=== PATIENT | female | born 1950 | race Caucasian/White ===

== ENCOUNTER 2017-02-04 08:10 | Outpatient (CLI) | payer OTHER ==
[~2017-02-04] VITALS: Ht 157.5 cm; Wt 72.6 kg
[2017-02-04] VITALS (10 sets, daily range): BP systolic 137–168; BP diastolic 66–88
[~2017-02-04 08:10] MED LIST: ASPI-482 PO; ATEN50TA PO; CHOL10003 PO; GLIP10TA13 PO; LEVO150T5 PO; LOSA50TA6 PO; LOVA20TA2 PO; METF-620 PO; MULT-460 PO; OMEP20TA63 PO
[2017-02-04 08:35] LABS: HEMATOCRIT 37.4 % (36.0-47.0); RED BLOOD COUNT 4.12 x10^6/uL (3.50-5.40); RED CELL DISTRIBUTION WIDTH 13.2 % (11.5-14.5); WHITE BLOOD COUNT 8.7 x10^3/uL (4.0-11.0)
[2017-02-04 08:43] LABS: CALCIUM 9.1 mg/dL (8.5-10.1); CREATININE 0.9 mg/dL (0.6-1.0); GFR 62.6; POTASSIUM 4.3 mmol/L (3.5-5.1)
[2017-02-04 08:47] LABS: PROTHROMBIN TIME PATIENT 12.1 SEC (11.7-14.0)
[2017-02-04] MEDS ORDERED: LIDOCAINE 2% 20 ML VIAL. ONE (10:02)
[2017-02-04] MEDS ORDERED: IOHEXOL 300 MG/ML 100ML VIAL. ONE (10:02)
--- NOTE | 2017-02-04 10:06 | PDOC ---
MODERATE SEDATION ASSESSMENT RISKS/ALTERNATIVES Risks/Alternatives Risks and alternatives of this type of sedation and procedure discussed with: RISK/ALTERNATIVES: Patient H & P ON CHART H & P H & P on chart and reviewed for co-morbid conditions and appropriate labs. H&P ON CHART: Yes STATUS PREG STATUS ASSESSED: Yes MEDS/ALLERGIES REVIEWED Meds/Allergies Reviewed Medications and Allergies including time and route of recently administered narcotics and sedatives. MEDS/ALLERGIES REVIEWED: Yes ASA RATING ASA RATING: II AIRWAY ASSESSMENT Airway Assessment Airway patency, oral function limitations, presence of caps, crowns, dentures, partials, and ability to extend neck assessed. AIRWAY ASSESSMENT: Yes MALLAMPATI SCORE MALLAMPATI SCORE: II PRE-SEDATION ASSESSMENT PRE-SEDATION ASSESSMENT: Yes GINA ELLIOTT MD Feb 04, 2017 10:06
[2017-02-04] MEDS ORDERED: fentaNYL PF VIAL 100 MCG/2 ML VIAL ONE (10:15)
[2017-02-04] MEDS ORDERED: MIDAZOLAM HCL/PF 5 MG/5 ML VIAL. ONE (10:15)
[2017-02-04] MEDS ORDERED: NITROGLYCERIN OINT 1 GM PACKET. ONE (10:30)
[2017-02-04] MEDS ORDERED: MIDAZOLAM HCL/PF 5 MG/5 ML VIAL. IV ONE (10:45)
[2017-02-04] MEDS ORDERED: IOHEXOL 300 MG/ML 100ML VIAL. IART ONE (10:45)
[2017-02-04] MEDS ORDERED: LIDOCAINE 2% 20 ML VIAL. IJ ONE (10:45)
[2017-02-04] MEDS ORDERED: fentaNYL PF VIAL 100 MCG/2 ML VIAL IV ONE (10:45)
[2017-02-04] MEDS ORDERED: NITROGLYCERIN OINT 1 GM PACKET. TP ONE (11:00)
[2017-02-04] MEDS ORDERED: NITROGLYCERIN SUBLINGUAL 0.4 MG BOTTLE OF 25. SL PRN (11:15)
[2017-02-04] MEDS ORDERED: 0.9 % SODIUM CHLORIDE 10 ML DISP.SYRIN. IV PRN (11:15)
[2017-02-04] MEDS ORDERED: IV NORMAL SALINE 1000ML BAG 1,000 ML IV SCH (11:30)
[2017-02-04] MEDS ORDERED: IBUPROFEN 800 MG TABLET. PO ONE (11:30)
--- NOTE | 2017-02-09 11:11 | CARD ---
APPROVED REPORT Procedures Left heart catheterization. Left ventriculogram. Selective coronary angiogram. The patient is a 66-year-old female with episodes of recurrent chest pain and shortness of breath. Th e patient has associated risk factors of hypertension. hyperlipidemia and diabetes mellitus. In this setting cardiac catheterization was recommended. Risks and benefits were discussed. The patient agree d to the procedure. After informed consent was obtained the patient was brought to the heart catheterization lab. The rig ht femoral artery was prepared in the usual manner with Betadine, sterile draping and local anestheti c. An 18-gauge needle was used to enter the right femoral artery, a wire placed and a 6 Estonian sheath placed over the wire. A 6 Estonian JL4 diagnostic catheter was used to engage the left coronary system and sequential injections in various views were obtained. A 6 [place] Vincenzo diagnostic catheter wa s used for injections of the right coronary artery although due to an anomalous takeoff it was not ab le to be engaged. However appropriate imaging was obtained. A pigtail catheter was advanced to the as cending aorta and the left ventricle. A 30 left ventriculogram was performed. Pullback pressures were measured. The catheter was removed from the patient. Injection of the sheath showed normal plac ement. The sheath was removed and sealed with an Angio-Seal product. There were no immediate complica tions. Findings. Hemodynamics. Left ventricular pressure of 136/18, aortic root 142/62. Coronaries. Left main. The left main was a normal-size vessel. It had no lesions. Left anterior descending. The left anterior descending was a moderate size vessel. It had no lesions. Left circumflex. The left circumflex was dominant vessel. It had no lesions. Right coronary artery. 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 It had no lesions. Left ventriculogram. The left ventricle had normal systolic function and no mitral regurgitation. <Conclusion> No angiographic evidence of coronary artery disease. 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 Normal left ventricular systolic function.
== END 2017-02-04 14:20 | disposition home or self-care (01) ==
LOC: CCL 08:10
PROVIDERS: ATTEND Internal Medicine Cardiovascular Disease
DX: R07.89 Other chest pain (principal); I10 Essential (primary) hypertension; E78.5 Hyperlipidemia, unspecified; E11.9 Type 2 diabetes mellitus without complications
CPT/HCPCS: 36415; 80048; 85027; 85610; 93458; 99152; 99153; C1769; C1771; C1892; G0269; J1644; J2250; J3010; Q9967; J2001

== ENCOUNTER 2017-06-24 18:55 | Emergency (ER) | payer OTHER ==
[2017-06-24 19:41] LABS: BILIRUBIN,URINE NEGATIVE (NEG); CLARITY,URINE CLEAR; COLOR,URINE YELLOW; GLUCOSE,URINE NEGATIVE (NEG); NITRITE,URINE NEGATIVE (NEG); PROTEIN,URINE NEGATIVE (NEG-TRACE); UROBILINOGEN,URINE 0.2 mg/dL (0.2 mg/dL)
[2017-06-24] MEDS: IV NORMAL SALINE 1000ML BAG 1,000 ML IV (19:43)
[2017-06-24 19:44] LABS: FECAL OB PT NEGATIVE (NEG); NEG OBC FOB NEG; POS OBC FOB POS
[2017-06-24] MEDS: fentaNYL PF VIAL 100 MCG/2 ML VIAL IV (19:44)
[2017-06-24] MEDS: ONDANSETRON PF 4 MG/2 ML VIAL. IV (19:44)
[2017-06-24 19:48] LABS: BACTERIA,URINE 0 /HPF (0-FEW); RBC,URINE 0 /HPF (0-2); SQUAMOUS EPITHELIAL CELL,UR MANY /LPF
[2017-06-24 19:52] LABS: ADD MAN DIFF? NO
[2017-06-24 19:55] LABS: BASO # 0.1 x10^3/uL (0.0-0.2); BASO % 1 % (0-3); EOS # 0.1 x10^3/uL (0.0-0.7); EOS % 1 % (0-3); HEMATOCRIT 36.3 % (36.0-47.0); HEMOGLOBIN 12.3 g/dL (12.0-15.5); LYMPH # 2.7 x10^3/uL (1.0-4.8); LYMPH % 32 % (24-48); MEAN CORPUSCULAR HEMOGLOBIN 32 pg (25-35); MEAN CORPUSCULAR HGB CONC 34 g/dL (31-37); MEAN CORPUSCULAR VOLUME 93 fL (79-100); MONO # 0.7 x10^3/uL (0.0-1.1); MONO % 8 % (0-9); NEUT # 4.8 x10^3uL (1.8-7.7); NEUT % 58 % (31-73); PLATELET COUNT 325 x10^3/uL (140-400); RED CELL DISTRIBUTION WIDTH 13.6 % (11.5-14.5); WHITE BLOOD COUNT 8.2 x10^3/uL (4.0-11.0)
[2017-06-24 20:03] LABS: ANION GAP 15 (6-14); BLOOD UREA NITROGEN 18 mg/dL (7-20); BUN/CREATININE RATIO 23 (6-20); CALCIUM 9.3 mg/dL (8.5-10.1); CARBON DIOXIDE 23 mmol/L (21-32); CHLORIDE 100 mmol/L (98-107); CREATININE 0.8 mg/dL (0.6-1.0); GFR 71.8; GLUCOSE 124 mg/dL (70-99); POTASSIUM 4.4 mmol/L (3.5-5.1); SODIUM 138 mmol/L (136-145)
[2017-06-24 20:08] LABS: ALBUMIN 4.2 g/dL (3.4-5.0); ALBUMIN/GLOBULIN RATIO 1.3 (1.0-1.7); ALK PHOS 69 U/L (46-116); ALT (SGPT) 27 U/L (14-59); AST (SGOT) 18 U/L (15-37); LIPASE 219 U/L (73-393); MAGNESIUM 1.2 mg/dL (1.8-2.4); TOTAL BILIRUBIN 0.4 mg/dL (0.2-1.0); TOTAL PROTEIN 7.4 g/dL (6.4-8.2)
[2017-06-24 20:11] LABS: TROPONINI < 0.017 ng/mL (0.000-0.055)
[2017-06-24 20:12] LABS: PARTIAL THROMBOPLASTIN TIME 26 SEC (24-38)
[2017-06-24 20:13] LABS: INR 0.9 (0.8-1.1); PROTHROMBIN TIME PATIENT 11.9 SEC (11.7-14.0)
== END 2017-06-24 21:20 | disposition home or self-care (01) ==
LOC: ER 18:55
DX: N39.0 Urinary tract infection, site not specified (principal); R11.2 Nausea with vomiting, unspecified; R19.7 Diarrhea, unspecified; M19.90 Unspecified osteoarthritis, unspecified site; E11.9 Type 2 diabetes mellitus without complications; E03.9 Hypothyroidism, unspecified; Z90.710 Acquired absence of both cervix and uterus; Z88.6 Allergy status to analgesic agent; Z88.8 Allergy status to other drugs, medicaments and biological substances
CPT/HCPCS: 36415; 80053; 81001; 82274; 83690; 83735; 84484; 85025; 85610; 85730; 87086; 93005; 96361; 96374; 96375; 99285-25; J2405; J3010; J7030

== ENCOUNTER → 2017-07-14 | Outpatient (CLI) | payer OTHER | END | disposition home or self-care (01) | LOC: KCIC US 09:52 | DX: K76.0 Fatty (change of) liver, not elsewhere classified (principal); K83.8 Other specified diseases of biliary tract; I70.0 Atherosclerosis of aorta; R16.0 Hepatomegaly, not elsewhere classified | CPT/HCPCS: 76705 ==

== ENCOUNTER → 2018-07-12 | Outpatient (CLI) | payer MEDICARE, OTHER ==
[2017-06-24 20:49] VITALS: BP 129/60
[~2018-07-12] MED LIST changes: +CEPH-264 PO; +ESCITALOPRAM OX10 MG PO; +LOSA-73 PO; +LOSA25TA54 PO; -LOSA50TA6 PO; -METF-620 PO; +METF10007 PO; +METO-269 PO; +ONDA4TAB10 SL; +PENI500T PO
--- NOTE | 2018-07-12 12:05 | RAD ---
PQRS Compliance Statement: One or more of the following individualized dose reduction techniques were utilized for this examination: 1. Automated exposure control 2. Adjustment of the mA and/or kV according to patient size 3. Use of iterative reconstruction technique CT chest without contrast July 12, 2018 INDICATION: Persistent cough, fatigue. COMPARISON: CT chest June 02, 2017 TECHNIQUE: Multiple axial CT images of the chest were obtained without intravenous contrast. Coronal and sagittal reformats are provided. FINDINGS: Thyroid gland is normal in appearance. Prevascular lymph node measures 4 mm by short axis. Calcified precarinal lymph node is identified. There are no pathologically enlarged lymph nodes in the axilla, mediastinum or hilar regions. Heart size is within normal limits. There is no pericardial effusion. Thoracic aorta is normal in course and caliber measuring up to 3.4 cm. There is a 5 mm calcified pulmonary nodule in the inferior lingula compatible with benign granulomatous disease. Similar 6 mm calcified granuloma is identified in the superior segment left lower lobe. No suspicious solid noncalcified pulmonary nodules are identified. There are no pleural effusions. No pulmonary vascular congestion or pneumothorax. Lungs are clear. Central airways are clear. Evaluation of the solid abdominal viscera is limited by lack of intravenous contrast. The liver, spleen, bilateral adrenal glands, pancreas and gallbladder are normal as visualized. No suspicious renal abnormality is identified. No suspicious osseous abnormality is identified. IMPRESSION: No significant abnormalities identified involving the chest. Electronically signed by: Verito Garvey MD (07/12/2018 12:01 PM) [id number]
== END | disposition home or self-care (01) ==
LOC: CT 11:16
PROVIDERS: ATTEND Physician Assistant Medical
DX: J98.4 Other disorders of lung (principal); R91.1 Solitary pulmonary nodule
CPT/HCPCS: 71250